=== PATIENT | female | born 1955 | race Caucasian/White ===

== ENCOUNTER 2016-05-23 11:28 | Emergency (ER) | payer BC ==
[~2016-05-23] VITALS: Ht 162.6 cm; Wt 68.3 kg
[~2016-05-23 11:28] MED LIST: ASCORBIC ACID500 M3 PO; CALCIUM 600 +1 EA16 PO; CALCIUM600 MG PO; CITRUCEL907 G1 PO; CYPROHEPTADINE H4 M1 PO; INDERAL LA60 MG PO; ISOMETHEPT-CAF1 EACH PO; L-LYSINE500 M2 PO; MAGNESIUM250 MG PO; PRAVACHOL20 MG PO; PRILOSEC40 MG PO; PROBIOTIC1 EAC3 PO; TUMERSAID TABL1 EACH PO; TURMERIC500 M1 PO; VALTREX1000 MG PO; VITAMIN D22000 UNIT PO; VOLTAREN 1% GE100 GM TP; ZOVIRAX400 MG PO
[2016-05-23 12:14] LABS: HEMATOCRIT 43.4 % (36.0-46.0); MCH 30.7 PG (29.0-34.0); MCHC 33.4 G/DL (30.0-36.0); MCV 91.8 FL (83-99); MEAN PLAT.VOLUME 12.2 uM^3 (9.5-12.4); PLATELET COUNT 189 K/uL (156-360); RBC DIS.WIDTH-CV 14.5 % (11.8-14.6); RBC DIS.WIDTH-SD 47.3 % (39-53); RED BLOOD COUNT 4.73 M/uL (3.80-5.20)
[2016-05-23 12:35] LABS: TROP-I INTERPRETATION NEGATIVE; TROPONIN-I < 0.01 ng/mL (0.0-0.30)
[2016-05-23 12:36] LABS: CHLORIDE 109 mEq/L (99-109); POTASSIUM 3.9 mEq/L (3.7-5.4); SODIUM 145 mEq/L (136-147)
[2016-05-23 12:38] LABS: GLUCOSE 81 mg/dL (70-99)
[2016-05-23 12:39] LABS: ANION GAP 9 MEQ/L (2-14)
[2016-05-23 12:41] LABS: GFR ESTIMATE (CALCULATED) > 59 mL/min/
[2016-05-23 12:42] LABS: UREA NITROGEN (BUN) 14 mg/dL (9-23)
[2016-05-23 13:44] LABS: D-DIMER ELISA 0.41 mg/L FEU (< 0.57)
[2016-05-23 14:15] LABS: TROP-I INTERPRETATION NEGATIVE; TROPONIN-I < 0.01 ng/mL (0.0-0.30)
[2016-05-23 15:01] VITALS: BP 127/80
== END 2016-05-23 15:10 | disposition home or self-care (01) ==
LOC: EME 11:28
PROVIDERS: Emergency Medicine
DX: R07.9 Chest pain, unspecified (principal); K21.9 Gastro-esophageal reflux disease without esophagitis
CPT/HCPCS: 71020; 80048; 84484; 85027; 85379; 93005; 99281; 99284; J1885

== ENCOUNTER → 2017-04-10 | Outpatient (CLI) | payer BC ==
[~2017-04-10] VITALS: Ht 165.1 cm; Wt 70.0 kg
[~2017-04-10] MED LIST changes: +MIRALAX17 GM PO; +VALACYCLOVIR1000 MG PO
[2017-04-10 11:46] VITALS: BP 141/73
== END | disposition home or self-care (01) ==
LOC: IVINF 03-27 11:00
DX: M81.0 Age-related osteoporosis without current pathological fracture (principal); Z87.19 Personal history of other diseases of the digestive system
CPT/HCPCS: 96365; J3489

== ENCOUNTER 2017-05-12 05:21 | Day surgery (SDC) | payer BC ==
[~2017-05-12] VITALS: Ht 165.1 cm; Wt 89.9 kg
[~2017-05-12 05:21] MED LIST changes: +RECLAST5 MG/100 M IV; +TYLENOL EXTRA500 MG PO; +VITAMIN D2000 UNI1 PO
[2017-05-12 06:12] VITALS: BP 129/66
[2017-05-12 15:35] VITALS: BP 110/65
[2017-05-12 20:00] VITALS: BP 108/60
[2017-05-12 23:45] VITALS: BP 106/51
[2017-05-13 05:20] VITALS: BP 115/59
[2017-05-13 06:19] LABS: HEMATOCRIT 35.8 % (36.0-46.0); HEMOGLOBIN 12.1 G/DL (11.9-15.5); MCV 93.2 FL (83-99)
[2017-05-13 07:57] VITALS: BP 107/58
== END 2017-05-13 09:20 | disposition home or self-care (01) ==
LOC: SDC 05:21 → 2SOUTH 09:20 → ENRESERV 09:21 → SDC 14:57 → 3EAST 15:05 → SDC 16:06 → 3EAST 05-13 09:20
PROVIDERS: Orthopaedic Surgery
PROC: 0RRK0J6 Replacement of Left Shoulder Joint with Synthetic Substitute, Humeral Surface, Open Approach (ICD-10-PCS; principal; 2017-05-12)
DX: M19.012 Primary osteoarthritis, left shoulder (principal); M25.512 Pain in left shoulder; K90.0 Celiac disease; E78.00 Pure hypercholesterolemia, unspecified; M85.80 Other specified disorders of bone density and structure, unspecified site; N32.81 Overactive bladder; R32 Unspecified urinary incontinence; Z90.49 Acquired absence of other specified parts of digestive tract; Z90.710 Acquired absence of both cervix and uterus; Z88.8 Allergy status to other drugs, medicaments and biological substances; Z91.09 Other allergy status, other than to drugs and biological substances; Z87.891 Personal history of nicotine dependence
CPT/HCPCS: 85014; 85018; G0378; J0131; J0330; J0690; J1100; J2250; J2405; J2765; J2795; J3010; J7030; J7050